=== PATIENT | male | born 1975 | race Hispanic/Latino ===

== ENCOUNTER 2024-12-16 09:26 | Observation (INO) | payer BC ==
[2024-12-16] VITALS (7 sets, daily range): BP systolic 112–129; BP diastolic 70–73; PULSE 87–108; RESP 16–18; TEMP 98.6–100.7; O2SAT 95–98
[~2024-12-16] VITALS: Ht 182.9 cm; Wt 102.1 kg
[2024-12-16] MEDS ORDERED: ONDANSETRON HCL INJ 2MG/ML 2ML 2 MG/ML VIAL ONE (10:32)
[2024-12-16] MEDS ORDERED: ACETAMINOPHEN 1000 MG/100 ML 100 ML IV ONE (10:33)
[2024-12-16 10:43] LABS: BASOPHILS % 0.2 % (0.0-1.0); HEMATOCRIT 44.4 % (38.2-49.6); HEMOGLOBIN 14.5 g/dL (14.0-18.0); LYMPHOCYTES # (AUTO) 0.9 (1.0-3.2); LYMPHOCYTES % 4.1 % (18.0-39.1); MEAN CORPUSCULAR HEMOGLOBIN 28.3 pg (28-32); MEAN CORPUSCULAR HGB CONC 32.7 g/dL (31-35); MEAN CORPUSCULAR VOLUME 86.5 fL (81-99); MONOCYTES # (AUTO) 1.2 (0.2-0.8); MONOCYTES % 5.4 % (4.4-11.3); NEUTROPHILS # (AUTO) 20.1 (2.1-6.9); NEUTROPHILS % 89.8 % (38.7-80.0); PLATELET COUNT 270 x10e3/uL (140-360); RED BLOOD COUNT 5.13 x10e6/uL (4.3-5.7); RED CELL DISTRIBUTION WIDTH 14.8 % (11.7-14.4); WHITE BLOOD COUNT 22.39 x10e3/uL (4.8-10.8)
[2024-12-16] MEDS: SODIUM CHLORIDE 0.9% 1000ML 1,000 ML IV STA ×2 (10:53)
[2024-12-16] MEDS: ONDANSETRON HCL INJ 2MG/ML 2ML 2 MG/ML VIAL IV STA (10:55)
[2024-12-16 10:56] LABS: STREPTOCOCCUS GRP A ANTIGEN NEGATIVE (NEGATIVE)
[2024-12-16] MEDS: ACETAMINOPHEN 1000 MG/100 ML IV STA (10:56)
[2024-12-16] MEDS: ACETAMINOPHEN 325 MG TAB PO STA (10:56)
[2024-12-16] MEDS: SODIUM CHLORIDE 0.9% 1000ML 1,000 ML IV SCH ×2 (11:00→16:28)
[2024-12-16 11:06] LABS: CORONAVIRUS COVID-19 AG NEGATIVE (NEGATIVE); INFLUENZA A AG NEGATIVE (NEGATIVE); INFLUENZA B AG NEGATIVE (NEGATIVE)
[2024-12-16 11:08] LABS: CREATINE KINASE 101 IU/L (30-200)
[2024-12-16 11:10] LABS: ALBUMIN 3.6 g/dL (3.5-5.0); ALBUMIN/GLOBULIN RATIO 0.9 (0.8-2.0); ANION GAP 16.9 mmol/L (8-16); BILIRUBIN,TOTAL 1.6 mg/dL (0.2-1.2); CALCIUM 8.7 mg/dL (8.4-10.2); CREATININE, SERUM 0.98 mg/dL (0.72-1.25); POTASSIUM 3.9 mmol/L (3.5-5.1); TOTAL PROTEIN 7.8 g/dL (6.5-8.1)
[2024-12-16 11:15] LABS: TROPONIN I < 0.001 ng/mL (0-0.300)
[2024-12-16 11:32] LABS: BILIRUBIN,URINE SMALL (NEGATIVE); CLARITY,URINE CLOUDY (CLEAR); COLOR,URINE YELLOW (YELLOW); GLUCOSE, URINE NEGATIVE (NEGATIVE); KETONES,URINE 2+ (NEGATIVE); LEUKOCYTE ESTERASE ,URINE SMALL (NEGATIVE); NITRITE,URINE NEGATIVE (NEGATIVE); PH,URINE 5.5 (5 - 7); PROTEIN,URINE DIPSTICK >=300 (NEGATIVE); URINE UROBILINOGEN 0.2 mg/dL (0.2 - 1)
[2024-12-16 11:44] LABS: BACTERIA,URINE FEW /HPF; EPITHELIAL CELLS,URINE FEW /LPF; RBC,URINE >50 /HPF (0-5); WBC,URINE (MAN) >50 /HPF (0-5)
[2024-12-16] MEDS ORDERED: IOPAMIDOL 370 MG/ML 100 ML INFUS..BTL INJ ONE (11:56)
[2024-12-16] MEDS ORDERED: ONDANSETRON HCL INJ 2MG/ML 2ML 2 MG/ML VIAL IV PRN ×2 (13:30→14:45)
[2024-12-16] MEDS ORDERED: Morphine 4mg INJECTION 4 MG/ML INJ IV PRN (14:45)
[2024-12-16] MEDS: ACETAMINOPHEN 325 MG TAB PO PRN (16:28)
[2024-12-16] MEDS ORDERED: NO HOME MEDS (17:38)
[2024-12-17] VITALS: BP 131/78; PULSE 83; RESP 17; TEMP 98.2; O2SAT 98
[2024-12-17 04:00] VITALS: BP 125/77; PULSE 77; RESP 17; TEMP 98.2; O2SAT 100
[2024-12-17 06:49] LABS: BASOPHILS # (AUTO) 0.1 (0.0-0.1); BASOPHILS % 0.3 % (0.0-1.0); EOSINOPHILS # (AUTO) 0.1 (0.0-0.4); EOSINOPHILS % 0.7 % (0.0-6.0); HEMATOCRIT 38.6 % (38.2-49.6); HEMOGLOBIN 12.4 g/dL (14.0-18.0); LYMPHOCYTES # (AUTO) 1.4 (1.0-3.2); LYMPHOCYTES % 8.3 % (18.0-39.1); MEAN CORPUSCULAR HEMOGLOBIN 28.4 pg (28-32); MEAN CORPUSCULAR HGB CONC 32.1 g/dL (31-35); MEAN CORPUSCULAR VOLUME 88.3 fL (81-99); MONOCYTES # (AUTO) 1.3 (0.2-0.8); MONOCYTES % 7.6 % (4.4-11.3); NEUTROPHILS # (AUTO) 13.8 (2.1-6.9); NEUTROPHILS % 82.5 % (38.7-80.0); PLATELET COUNT 234 x10e3/uL (140-360); RED BLOOD COUNT 4.37 x10e6/uL (4.3-5.7); RED CELL DISTRIBUTION WIDTH 14.9 % (11.7-14.4); WHITE BLOOD COUNT 16.77 x10e3/uL (4.8-10.8)
[2024-12-17 07:13] LABS: ALBUMIN 2.7 g/dL (3.5-5.0); ALBUMIN/GLOBULIN RATIO 0.8 (0.8-2.0); BILIRUBIN,TOTAL 1.3 mg/dL (0.2-1.2); CALCIUM 7.8 mg/dL (8.4-10.2); CREATININE, SERUM 0.82 mg/dL (0.72-1.25); TOTAL PROTEIN 6.1 g/dL (6.5-8.1)
[2024-12-17 08:00] VITALS: BP 126/89; PULSE 78; RESP 17; TEMP 98.2; O2SAT 98
[2024-12-17 08:45] VITALS: BP 126/89; PULSE 78; RESP 17; TEMP 98.2; O2SAT 98
[2024-12-17 16:00] VITALS: BP 121/74; PULSE 76; RESP 17; TEMP 98.3; O2SAT 99
[2024-12-17] MEDS ORDERED: BACTRIM DS TAB1 EACH PO (16:17)
== END 2024-12-17 17:10 | disposition home or self-care (01) ==
LOC: ER 09:34 → ERHOLD 14:34 → INTOOBSV 14:34 → MED/SURG3 17:23
PROVIDERS: ADMIT Internal Medicine; ATTEND Internal Medicine
DX: A41.9 Sepsis, unspecified organism (principal); N30.90 Cystitis, unspecified without hematuria; B96.20 Unspecified Escherichia coli [E. coli] as the cause of diseases classified elsewhere
CPT/HCPCS: 36415 ×2; 71045; 74177; 80053 ×2; 81001; 82550; 83518; 83605; 83690; 83880; 84484; 85025 ×2; 87040; 87070; 87086; 87186; 87428; 93005; 93306; 99284; G0378 ×2; J0131; J2405; J2543 ×2; J7030; Q9967